=== PATIENT | male | born 1930 | race Caucasian/White ===

== ENCOUNTER 2019-07-15 10:55 | Emergency (ER) | payer MEDICARE ==
[~2019-07-15] VITALS: Ht 180.3 cm; Wt 91.7 kg
[~2019-07-15 10:55] MED LIST: AMLO2.5T4 PO; CARB-36 PO; CARB1TAB21 PO; DONE5TAB34 PO; LOSA100T31 PO; METO25TA20 PO; MIRT15TA7 PO; QUETIAPINE 50 MG PO
--- NOTE | 2019-07-15 11:03 | NUR ---
PT JENNIFER FROM [facility] C/O PULLED GTUBE, PT IS AAOX2, NOT IN RESPIRATORY DISTRESS, HOOKED TO MONITOR, KEPT RESTED AND COMFORTABLE, WILL CONTINUE TO MONITOR, AWAITING ER MD FOR EVAL.
--- NOTE | 2019-07-15 11:16 | NUR ---
SEEN AND EXAMINED BY .
[2019-07-15] MEDS ORDERED: DIATR MEGLU/DIATRIZOATE SODIUM 30 ML BOTTLE (GASTROGRAPHIN) ONE (11:21)
--- NOTE | 2019-07-15 11:26 | NUR ---
[employer] OPERATOR AT BEDSIDE FOR XRAY.
[2019-07-15] MEDS ORDERED: DIATR MEGLU/DIATRIZOATE SODIUM 30 ML BOTTLE (GASTROGRAPHIN) PO ONE (11:30)
--- NOTE | 2019-07-15 12:31 | NUR ---
CALLED FOR TRANSPORT, [facility], [address] 1330, TRIP #[phone]
--- NOTE | 2019-07-15 13:59 | NUR ---
REPORT GIVEN TO EMT FOR TRANSFER BACK TO [facility].
[2019-07-15 14:00] VITALS: BP 122/59
== END 2019-07-15 14:01 ==
LOC: ER 11:09
DX: K94.23 Gastrostomy malfunction (principal); G20 Parkinson's disease; Z79.899 Other long term (current) drug therapy
CPT/HCPCS: 74018; 99283; Q9963 ×2